=== PATIENT | female | born 1965 | race Caucasian/White ===

== ENCOUNTER → 2017-07-08 | Outpatient (CLI) | payer BC ==
--- NOTE | 2017-07-09 07:36 | MAMMOGRAPHY REPORT ---
BILATERAL DIGITAL SCREENING MAMMOGRAM TOMOSYNTHESIS WITH CAD: 07/08/2017 CLINICAL HISTORY: Routine screening. Patient has no complaints. TECHNIQUE: Breast tomosynthesis in addition to standard 2D mammography was performed. Current study was also evaluated with a Computer Aided Detection (CAD) system. COMPARISON: Comparison is made to exams dated: 05/24/2016 mammogram, 03/24/2015 mammogram, 12/04/2013 [facility], 12/02/2012 mammogram, 11/23/2011 mammogram, and 11/13/2010 mammogram - [facility] er. BREAST COMPOSITION: The tissue of both breasts is heterogeneously dense, which may obscure small mas ses. FINDINGS: The parenchymal pattern is similar to prior mammograms. There is a stable ribbon-shaped b iopsy marker clip in an area of asymmetry in the superior left breast on the MLO view. No developing mass, architectural distortion or cluster of suspicious microcalcifications is seen in either breast . IMPRESSION: ACR BI-RADS CATEGORY 2: BENIGN There is no mammographic evidence of malignancy. A 1 year screening mammogram is recommended. The pa tient will receive written notification of the results. Approximately 10% of breast cancers are not detected with mammography. A negative mammographic report should not delay biopsy if a clinically suggestive mass is present. Lady Benito M.D. ay/:07/08/2017 16:11:59 Lands Resource Manager: Joana SANFORD(R)(M), [facility] letter sent: Normal 1/2 BI-RADS Code: ACR BI-RADS Category 2: Benign
== END | disposition home or self-care (01) ==
LOC: C.MAMM 07:27
PROVIDERS: ATTEND Obstetrics & Gynecology
DX: Z12.31 Encounter for screening mammogram for malignant neoplasm of breast (principal)

== ENCOUNTER 2017-08-28 13:40 | Emergency (ER) | payer BC ==
[~2017-08-28] VITALS: Ht 154.9 cm; Wt 53.0 kg
[2017-08-28 13:42] VITALS: TEMP 36.3; Ht 154.9 cm; Wt 53.0 kg
[2017-08-28 14:50] VITALS: O2SAT 100
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
[2017-08-28 15:10] LABS: BASO % 0.3 %; BASO ABS # 0.03 K/uL (0-0.2); COMPLETE YES; EOS % 2.9 %; HEMATOCRIT 38.5 % (37-47); IG% 0.2 %; LYMPH % 4.7 %; LYMPH ABS # 0.47 K/uL (1.2-3.4); MEAN CELL VOLUME 88.3 fL (80-100); MEAN CORPUSCULAR HEMOGLOBIN 29.6 pg (25-34); MEAN CORPUSCULAR HGB CONC 33.5 g/dl (32-36); MONO % 3.4 %; NEUT % 88.5 %; PLATELET COUNT 222 K/uL (130-400); RED BLOOD COUNT 4.36 M/uL (4.2-5.4); WHITE BLOOD COUNT 9.97 K/uL (4.8-10.8)
[2017-08-28] MEDS ORDERED: VENL-271 PO (15:20)
[2017-08-28] MEDS ORDERED: MULT-240 PO (15:20)
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
[2017-08-28 15:28] LABS: ALT/SGPT 31 U/L (12-78); AST/SGOT 25 U/L (15-37); BLOOD UREA NITROGEN 16 mg/dl (7-18); BUN/CREATININE RATIO 17.6 (10-20); CALCIUM 8.8 mg/dl (8.5-10.1); CARBON DIOXIDE 29 mmol/L (21-32); CHLORIDE 104 mmol/L (98-107); GLUCOSE 149 mg/dl (70-99); POTASSIUM 3.7 mmol/L (3.5-5.1); SODIUM 135 mmol/L (136-145)
[2017-08-28 15:31] LABS: ALKALINE PHOSPHATASE 55 U/L (45-117)
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
[2017-08-28 15:39] LABS: URINE APPEARANCE CLOUDY (CLEAR); URINE BILIRUBIN NEG (NEG); URINE COLOR YELLOW; URINE EPITHELIAL CELL AUTO >30 /lpf (0-5); URINE NITRITE NEG (NEG); URINE SPECIFIC GRAVITY 1.026 (1.000-1.030); UROBILINOGEN NEG (NEG)
[2017-08-28 15:41] LABS: MANUAL MICROSCOPIC REQUIRED? NO; REVIEW REQ? YES
[2017-08-28] MEDS ORDERED: OPTIRAY 320 IV PRN (16:00)
--- NOTE | 2017-08-28 17:00 | DIAGNOSTIC IMAGING REPORT ---
R CLAVICLE CLINICAL HISTORY: right shoulder pain pain COMPARISON: None. DISCUSSION: The bones and joint spaces appear intact. There is no evidence of fracture, dislocation or bony disease. There is no evidence for soft tissue swelling. IMPRESSION: Negative study. The above report was generated using voice recognition software. It may contain grammatical, syntax or spelling errors. Electronically signed by: Lane Arias M.D. 08/28/2017 4:59 PM Dictated Date/Time: 08/28/2017 4:59 PM
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
[2017-08-28 18:14] VITALS: BP 119/87; PULSE 64; O2SAT 100
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
== END 2017-08-28 18:16 | disposition home or self-care (01) ==
LOC: C.EDB 13:42 → C.EDA 18:16
DX: S27.0XXA Traumatic pneumothorax, initial encounter (principal); S40.011A Contusion of right shoulder, initial encounter; S06.0X0A Concussion without loss of consciousness, initial encounter; V86.55XA Driver of 3- or 4- wheeled all-terrain vehicle (ATV) injured in nontraffic accident, initial encounter; R00.1 Bradycardia, unspecified

== ENCOUNTER → 2017-08-29 | Outpatient (CLI) | payer BC ==
[~2017-08-29] MED LIST: MULT-240 PO; VENL-271 PO
--- NOTE | 2017-08-29 17:01 | DIAGNOSTIC IMAGING REPORT ---
TWO VIEW CHEST CLINICAL HISTORY: Pneumothorax. FINDINGS: PA and lateral chest radiographs are compared to chest x-ray and chest CT dated 08/28/2017. The cardiomediastinal silhouette is unremarkable. The lungs and pleural spaces are clear. There is no pneumothorax. The bony thorax appears intact. IMPRESSION: No active disease in the chest. The trace pneumothorax seen by CT is not apparent by x-ray. Electronically signed by: Dillon Jaramillo M.D. 08/29/2017 4:59 PM Dictated Date/Time: 08/29/2017 4:59 PM
== END | disposition home or self-care (01) ==
LOC: C.RAD1850 16:18
PROVIDERS: ATTEND Physician Assistant
DX: J93.9 Pneumothorax, unspecified (principal)